=== PATIENT | female | born 1985 | race Caucasian/White ===

== ENCOUNTER 2022-08-06 18:25 | Emergency (ER) | payer SELFPAY | END 2022-08-06 19:23 | disposition home or self-care (01) | LOC: ERS 18:25 | DX: K08.89 Other specified disorders of teeth and supporting structures (principal); R51.9 Headache, unspecified | CPT/HCPCS: 99283 ==

== ENCOUNTER 2024-04-07 23:11 | Emergency (ER) | payer OTHER, SELFPAY ==
[2024-04-08] MEDS ORDERED: Dexamethasone 10 MG/ML VIAL ONE (00:15)
== END 2024-04-08 00:52 | disposition home or self-care (01) ==
LOC: ERS 23:11
DX: T63.481A Toxic effect of venom of other arthropod, accidental (unintentional), initial encounter (principal); L29.9 Pruritus, unspecified
CPT/HCPCS: 96372; 99282; J1100